=== PATIENT | female | born 1990 | race Caucasian/White ===

== ENCOUNTER 2017-04-29 10:41 | Emergency (ER) | payer SELFPAY ==
[2017-04-29 12:27] LABS: Basophils % (Auto) 0.5 % (0.0-1.8); Hematocrit 35.7 % (30.3-42.9); Hemoglobin 12.3 gm/dl (10.1-14.3); Mean Corpuscular HGB Conc 35 % (30-34); Mean Corpuscular Hemoglobin 30 pg (28-32); Mean Corpuscular Volume 87 fl (79-97); Platelet Count 470 K/mm3 (140-440); Red Cell Distribution Width 15.8 % (13.2-15.2); White Blood Count 10.8 K/mm3 (4.5-11.0)
[2017-04-29 12:40] LABS: Anion Gap 21 mmol/L; Blood Urea Nitrogen 6 mg/dL (7-17); Calcium 9.4 mg/dL (8.4-10.2); Carbon Dioxide 20 mmol/L (22-30); Chloride 94.1 mmol/L (98-107); Glucose 113 mg/dL (65-100); Potassium 3.7 mmol/L (3.6-5.0); Sodium 131 mmol/L (137-145)
[2017-04-29 15:37] LABS: Bilirubin,Urine NEG (Negative); Blood,Urine SM (Negative); Ketones,Urine 80 mg/dL (Negative); Leukocyte Esterase,Urine TR (Negative); Mucus,Urine 3+ /HPF; Nitrite,Urine NEG (Negative); Urobilinogen,Urine < 2.0 mg/dL (<2.0)
[2017-04-29] MEDS ORDERED: TYLENOL PO ONE (16:41)
[2017-04-29] MEDS ORDERED: TYLENOL ONE (16:43)
--- NOTE | 2017-04-29 16:44 | Emergency Department Report ---
ED HPI - General Chief complaint: Nausea/Vomiting/Diarrhea Stated complaint: 15 WEEKS PREG W/EMESIS Time Seen by Provider: 04/29/17 16:33 Source: patient, EMS (ems notes not available at time of chart dictation), RN notes reviewed Mode of arrival: Stretcher Limitations: No Limitations - History of Present Illness Initial comments: This is a 26-year-old female, the patient is previously unknown to me. She reports that she is 3, para 2, reports that her last menstrual period is February 10. She reports no care. Patient brought to the hospital by EMS for abdominal cramping, nausea, vomiting , malaise, constipation, unintentional weight loss. Patient denies fevers, chills, irritative and obstructive urinary symptoms, her symptoms were improved with IV Zofran and 300 mL of IV fluids given to the patient by EMS, as per nursing documentation. The patient's nausea and vomiting has since resolved, and she reports that she feels somewhat better, there is no right lower quadrant pain. -: Gradual Quality: cramping Consistency: now resolved Improves with: movement Worsens with: eating Associated symptoms: nausea/vomiting. denies: dysuria :: Yes - Related Data Previous Rx's Medication Instructions Recorded Last Taken Type Doxylamine/Pyridoxine HCl 1 each PO QHS PRN #30 tablet. 04/29/17 Unknown Rx [Kevin Black 10-10 mg Tablet] Tasia Root [Tasia] 250 mg PO QID PRN #60 capsule 04/29/17 Unknown Rx Ondansetron [Zofran Odt] 4 mg PO QID PRN #20 tab.rapdis 04/29/17 Unknown Rx Vit W-Ca,Fe,FA(<1 mg) 1 each PO QDAY #30 tablet 04/29/17 Unknown Rx [ Vitamins] Allergies Allergy/AdvReac Type Severity Reaction Status Date / Time No Known Allergies Allergy Verified 04/29/17 16:40 ED Review of Systems ROS: Stated complaint: 15 WEEKS PREG W/EMESIS Other details as noted in HPI Constitutional: malaise. denies: fever Eyes: denies: vision change ENT: denies: epistaxis Respiratory: denies: cough Gastrointestinal: abdominal pain, nausea, vomiting Genitourinary: denies: dysuria Musculoskeletal: denies: back pain Skin: denies: lesions Neurological: weakness. denies: headache Psychiatric: anxiety ED Past Medical Hx - Medications Home Medications: Home Medications Medication Instructions Recorded Confirmed Last Taken Type Doxylamine/Pyridoxine HCl 1 each PO QHS PRN #30 tablet.dr 04/29/17 Unknown Rx [Diclegis Dr 10-10 mg Tablet] Tasia Root [Tasia] 250 mg PO QID PRN #60 capsule 04/29/17 Unknown Rx Ondansetron [Zofran Odt] 4 mg PO QID PRN #20 tab.rapdis 04/29/17 Unknown Rx Vit W-Ca,Fe,FA(<1 mg) 1 each PO QDAY #30 tablet 04/29/17 Unknown Rx [ Vitamins] ED Physical Exam - General Limitations: No Limitations General appearance: alert, in no apparent distress - Head Head exam: Present: atraumatic, normocephalic - Eye Eye exam: Present: normal appearance, EOMI. Absent: nystagmus - ENT ENT exam: Present: normal exam, normal orophraynx, mucous membranes moist, normal external ear exam - Neck Neck exam: Present: normal inspection, full ROM. Absent: tenderness, meningismus - Respiratory Respiratory exam: Present: normal lung sounds bilaterally. Absent: respiratory distress, wheezes, rales, rhonchi, stridor, chest wall tenderness, accessory muscle use, decreased breath sounds, prolonged expiratory - Cardiovascular Cardiovascular Exam: Present: regular rate, normal rhythm. Absent: systolic murmur, diastolic murmur, rubs, gallop - GI/Abdominal GI/Abdominal exam: Present: soft, normal bowel sounds. Absent: distended, tenderness, guarding, rebound, rigid, pulsatile mass - Extremities Exam Extremities exam: Present: normal inspection, full ROM, normal capillary refill. Absent: tenderness, pedal edema, joint swelling, calf tenderness - Back Exam Back exam: Present: normal inspection, full ROM. Absent: tenderness, CVA tenderness (R), CVA tenderness (L), muscle spasm, paraspinal tenderness, vertebral tenderness - Neurological Exam Neurological exam: Present: alert, oriented X3, normal gait, other (Extraocular movements intact. Tongue midline. No facial droop. Facial sensation intact to light touch in the V1, V2, V3 distribution bilaterally. 5 and 5 strength in 4 extremities.. Sensation is intact to light touch in 4 extremities.). Absent : motor sensory deficit - Psychiatric Psychiatric exam: Present: normal affect, normal mood - Skin Skin exam: Present: warm, dry, intact, normal color. Absent: rash ED Course Vital Signs 04/29/17 04/29/17 04/29/17 11:41 16:46 16:50 Temperature 99.2 F 99.4 F Pulse Rate 82 92 H Respiratory 18 18 16 Rate Blood Pressure 121/82 Blood Pressure 117/82 [Left] O2 Sat by Pulse 98 Oximetry ED Medical Decision Making - Lab Data Result diagrams: 04/29/17 12:09 04/29/17 12:09 Vital Signs 04/29/17 04/29/17 04/29/17 11:41 16:46 16:50 Temperature 99.2 F 99.4 F Pulse Rate 82 92 H Respiratory 18 18 16 Rate Blood Pressure 121/82 Blood Pressure 117/82 [Left] O2 Sat by Pulse 98 Oximetry Lab Results 04/29/17 04/29/17 04/29/17 Range/Units 12:09 12:09 15:10 WBC 10.8 (4.5-11.0) K/mm3 RBC 4.10 (3.65-5.03) M/mm3 Hgb 12.3 (10.1-14.3) gm/dl Hct 35.7 (30.3-42.9) % MCV 87 (79-97) fl MCH 30 (28-32) pg MCHC 35 H (30-34) % RDW 15.8 H (13.2-15.2) % Plt Count 470 H (140-440) K/mm3 Lymph % (Auto) 12.1 L (13.4-35.0) % [place] % (Auto) 4.5 (0.0-7.3) % Eos % (Auto) 0.0 (0.0-4.3) % Baso % (Auto) 0.5 (0.0-1.8) % Lymph # 1.3 (1.2-5.4) K/mm3 [place] # 0.5 (0.0-0.8) K/mm3 Eos # 0.0 (0.0-0.4) K/mm3 Baso # 0.1 (0.0-0.1) K/mm3 Seg Neutrophils % 82.9 H (40.0-70.0) % Seg Neutrophils # 9.0 H (1.8-7.7) K/mm3 Sodium 131 L (137-145) mmol/L Potassium 3.7 (3.6-5.0) mmol/L Chloride 94.1 L (98-107) mmol/L Carbon Dioxide 20 L (22-30) mmol/L Anion Gap 21 mmol/L BUN 6 L (7-17) mg/dL Creatinine 0.3 L (0.7-1.2) mg/dL Estimated GFR > 60 ml/min BUN/Creatinine Ratio 20.00 % Glucose 113 H (65-100) mg/dL Calcium 9.4 (8.4-10.2) mg/dL Urine Color Yellow (Yellow) Urine Turbidity Slightly-cloudy (Clear) Urine pH 6.0 (5.0-7.0) Ur Specific [place] 1.026 (1.003-1.030) Urine Protein 100 mg/dl (Negative) mg/dL Urine Glucose (UA) 50 (Negative) mg/dL Urine Ketones 80 (Negative) mg/dL Urine Blood Sm (Negative) Urine Nitrite Neg (Negative) Ur Reducing Substances Not Reportable Urine Bilirubin Neg (Negative) Urine Ictotest Not Reportable Urine Urobilinogen < 2.0 (<2.0) mg/dL Ur Leukocyte Esterase Tr (Negative) Urine WBC (Auto) 9.0 H (0.0-6.0) /HPF Urine RBC (Auto) 14.0 (0.0-6.0) /HPF U Epithel Cells (Auto) 9.0 (0-13.0) /HPF Urine Mucus 3+ /HPF - Medical Decision Making Differential diagnosis: Hyperemesis, nausea and vomiting of , constipation Assessment and plan: 26-year-old female who is , bedside ultrasound demonstrates intrauterine with heart tones, no abdominal tenderness, no right lower quadrant tenderness, with resolved nausea and vomiting, most likely in the hyperemesis/nausea and vomiting of spectrum. She is tolerating liquid feeds, and has benign vital signs and benign physical exam, she'll be started on vitamins, she'll be given as needed nausea medication, and the patient is instructed as to importance of following up with outpatient supervisor paper products. Return precautions are reviewed. Critical care attestation.: If time is entered above; I have spent that time in minutes in the direct care of this critically ill patient, excluding procedure time. ED Disposition Clinical Impression: Nausea and vomiting during Disposition: DC-01 TO HOME OR SELFCARE Is pt being admited?: No Does the pt Need Aspirin: No Condition: Stable Instructions: Hyperemesis Gravidarum (ED) Additional Instructions: Take the medications as needed/directed. Avoid consumption of heavy and or spicy foods. Drink fluids as tolerated, follow up with an [facility] doctor as soon as possible to start and initiate care. Not following up with an [facility] as soon as possible may result in disability, paralysis, defects, loss of quality of life to both the fetus and the mother. Return to the ER right away with new pain, worsening pain, migration of pain, fevers, chills, confusion, intractable nausea or vomiting, inability to tolerate liquid feeds. Prescriptions: Doxylamine/Pyridoxine HCl [Kevin Black 10-10 mg Tablet] 1 each PO QHS PRN #30 tablet.dr PRN Reason: Nausea Tasia Root [Tsaia] 250 mg PO QID PRN #60 capsule PRN Reason: Nausea Ondansetron [Zofran Odt] 4 mg PO QID PRN #20 tab.rapdis PRN Reason: Nausea Vit W-Ca,Fe,FA(<1 mg) [ Vitamins] 1 each PO QDAY #30 tablet Referrals: PRIMARY CARE, [Primary Care Provider] - 3-5 Days [facility] [Provider Group] - 3-5 Days [facility] [Provider Group] - 3-5 Days [facility] [Provider Group] - 3-5 Days
[2017-04-29 16:52] VITALS: BP 117/82
== END 2017-04-29 17:37 | disposition home or self-care (01) ==
LOC: ED 10:41
DX: O21.0 Mild hyperemesis gravidarum (principal); Z3A.15 15 weeks gestation of pregnancy
CPT/HCPCS: 36415; 80048; 81001; 81025; 85025; 99284

== ENCOUNTER 2017-05-01 08:32 | Emergency (ER) | payer SELFPAY ==
[2017-05-01 09:14] LABS: Basophils % (Auto) 0.5 % (0.0-1.8); Eosinophils % (Auto) 0.1 % (0.0-4.3); Hematocrit 37.5 % (30.3-42.9); Hemoglobin 12.8 gm/dl (10.1-14.3); Mean Corpuscular HGB Conc 34 % (30-34); Mean Corpuscular Hemoglobin 30 pg (28-32); Mean Corpuscular Volume 89 fl (79-97); Platelet Count 395 K/mm3 (140-440); Red Blood Count 4.23 M/mm3 (3.65-5.03); Red Cell Distribution Width 15.5 % (13.2-15.2)
[2017-05-01 09:25] LABS: Anion Gap 22 mmol/L; Blood Urea Nitrogen 15 mg/dL (7-17); Calcium 9.4 mg/dL (8.4-10.2); Carbon Dioxide 19 mmol/L (22-30); Glucose 62 mg/dL (65-100); Potassium 3.4 mmol/L (3.6-5.0); Sodium 134 mmol/L (137-145)
[2017-05-01] MEDS ORDERED: NACL 0.9% 1000 ML 1,000 ML IV ONE (14:35)
[2017-05-01] MEDS ORDERED: ZOFRAN IV ONE (14:36)
[2017-05-01] MEDS ORDERED: K-DUR PO ONE (15:22)
--- NOTE | 2017-05-01 15:23 | Emergency Department Report ---
ED HPI - General Chief complaint: Abdominal Pain Stated complaint: N/V of preg; no vag bleed or dc Time Seen by Provider: 05/01/17 14:37 Source: patient, old records reviewed Mode of arrival: Ambulatory Limitations: No Limitations - History of Present Illness MD Complaint: other (nv per report; no active n/v in er) -: month(s) Severity: mild Consistency: intermittent Improves with: none Worsens with: eating Associated symptoms: denies other symptoms, nausea/vomiting. denies: vaginal bleeding, vaginal discharge, abdominal pain, dysuria, headache, vision changes, malaise, dysparuenia, rash, seizure, shortness of breath, syncope, weakness Vaginal bleeding: none :: Yes Number of weeks : 11 OB History - Current : hyperemesis (w other preg) OB History - Previous Pregnancies: hyperemesis Pre-carola care: none - Related Data : 3 Para: 2 Ab: 0 Previous Rx's Medication Instructions Recorded Last Taken Type Doxylamine/Pyridoxine HCl 1 each PO QHS PRN #30 tablet.dr 04/29/17 Unknown Rx [Dictreygiaydin Dr 10-10 mg Tablet] Tasia Root [Tasia] 250 mg PO QID PRN #60 capsule 04/29/17 Unknown Rx Ondansetron [Zofran Odt] 4 mg PO QID PRN #20 tab.rapdis 04/29/17 Unknown Rx Vit W-Ca,Fe,FA(<1 mg) 1 each PO QDAY #30 tablet 04/29/17 Unknown Rx [ Vitamins] Allergies Allergy/AdvReac Type Severity Reaction Status Date / Time No Known Allergies Allergy Verified 04/29/17 16:40 ED Review of Systems ROS: Stated complaint: N/V Other details as noted in HPI Comment: Unobtainable due to pts medical conditions Constitutional: no symptoms reported, see HPI. denies: chills, fever Eyes: as per HPI. denies: eye pain ENT: as per HPI. denies: ear pain, throat pain Respiratory: no symptoms reported, see HPI. denies: cough, orthopnea Cardiovascular: as per HPI. denies: chest pain, palpitations, dyspnea on exertion, orthopnea Endocrine: no symptoms reported, see HPI. denies: excessive sweating, flushing , intolerance to cold, intolerance to heat Gastrointestinal: as per HPI, nausea, vomiting. denies: abdominal pain, diarrhea, constipation, hematemesis, melena, hematochezia Genitourinary: as per HPI. denies: urgency, dysuria, frequency, hematuria, discharge, abnormal menses, dyspareunia Musculoskeletal: as per HPI. denies: back pain Skin: as per HPI. denies: rash, lesions Neurological: as per HPI. denies: headache, weakness Psychiatric: as per HPI. denies: anxiety, depression Hematological/Lymphatic: as per HPI. denies: easy bleeding (no abd pain; no vag bleed or dc; denies concern for std) ED Past Medical Hx - Past Medical History Previous Medical History?: No - Surgical History Past Surgical History?: No - Medications Home Medications: Home Medications Medication Instructions Recorded Confirmed Last Taken Type Doxylamine/Pyridoxine HCl 1 each PO QHS PRN #30 tablet.dr 04/29/17 Unknown Rx [Diclegis Dr 10-10 mg Tablet] Tasia Root [Tasia] 250 mg PO QID PRN #60 capsule 04/29/17 Unknown Rx Ondansetron [Zofran Odt] 4 mg PO QID PRN #20 tab.rapdis 04/29/17 Unknown Rx Vit W-Ca,Fe,FA(<1 mg) 1 each PO QDAY #30 tablet 04/29/17 Unknown Rx [ Vitamins] ED Physical Exam - General Limitations: No Limitations General appearance: alert, in no apparent distress - Head Head exam: Present: atraumatic - Eye Eye exam: Present: normal appearance - ENT ENT exam: Present: mucous membranes moist - Neck Neck exam: Present: normal inspection - Respiratory Respiratory exam: Present: normal lung sounds bilaterally - Cardiovascular Cardiovascular Exam: Present: regular rate, normal rhythm (88 on exam) - GI/Abdominal GI/Abdominal exam: Present: soft, normal bowel sounds, other (thin; thc use). Absent: distended, tenderness, guarding, rebound, rigid, diminished bowel sounds , hyperactive bowel sounds, hypoactive bowel sounds, organomegaly, mass, bruit, pulsatile mass, hernia - Expanded GI/Abdominal Exam Expanded GI/Abdominal exam: Absent: psoas sign, obturator sign, heel tap sign, Thurman's sign, Rovsing's sign, tenderness at [place], ascites - Rectal Rectal exam: Present: deferred - External exam: Present: normal external exam - Extremities Exam Extremities exam: Present: normal inspection. Absent: full ROM, tenderness - Back Exam Back exam: Present: normal inspection, full ROM. Absent: tenderness, CVA tenderness (R) - Neurological Exam Neurological exam: Present: alert, oriented X3, normal gait, reflexes normal - Psychiatric Psychiatric exam: Present: normal affect, normal mood - Skin Skin exam: Present: warm, dry, intact ED Course Vital Signs 05/01/17 05/01/17 05/01/17 08:37 16:33 18:53 Temperature 98.6 F Pulse Rate 108 H 75 77 Respiratory 16 16 16 Rate Blood Pressure 109/67 Blood Pressure 122/75 107/67 [Right] O2 Sat by Pulse 100 99 98 Oximetry - Reevaluation(s) Reevaluation #1: 05/01/17 was in er Tuesday w same states can not take po but no n/v here in er no abd pain no vag dc or bleeding vss labs noted and stable no concern std we did send gc and urine cultures we got a phone no to call pt if we should need to. no fever no dysuria wbc wnl no cva tenderness has not seen her obgyn using thc on exam fht 160 per provider bedside us urine is clean catch epith cells no cva no fever no dysuria Reevaluation #2: 05/01/17 18:59 dc home w dc poc observation and no n/v taking po vss hr 86 on dc ambulatory and taking po - Procedure Description Procedures done: bedside us for [facility] ED Medical Decision Making - Lab Data Result diagrams: 05/01/17 08:59 05/01/17 08:59 - Medical Decision Making hyperemesis grav 11 w preg no vag bleed or dc no abd pain taking po on dc had same w other preg Critical care attestation.: If time is entered above; I have spent that time in minutes in the direct care of this critically ill patient, excluding procedure time. ED Disposition Clinical Impression: Nausea and vomiting during , IUP (intrauterine ), incidental Disposition: DC-01 TO HOME OR SELFCARE Is pt being admited?: No Does the pt Need Aspirin: No Condition: Stable Instructions: Hyperemesis Gravidarum (ED) Additional Instructions: rest fluids water no alcohol no marijuanna take you meds that we gave you Tuesday See OB in AM Referrals: PRIMARY CARE, [Primary Care Provider] - 3-5 Days [facility] [Outside] - 3-5 Days [facility] [Outside] - 3-5 Days BERHANE DELVALLE MD [Referring] - 3-5 Days Time of Disposition: 18:52
[2017-05-01 15:36] LABS: Bacteria,Urine 1+ /HPF (Negative); Bilirubin,Urine NEG (Negative); Blood,Urine SM (Negative); Ketones,Urine 80 mg/dL (Negative); Leukocyte Esterase,Urine TR (Negative); Mucus,Urine 3+ /HPF; Nitrite,Urine NEG (Negative); Urobilinogen,Urine < 2.0 mg/dL (<2.0)
[2017-05-01 18:54] VITALS: BP 107/67
== END 2017-05-01 19:08 | disposition home or self-care (01) ==
LOC: ED 08:32
DX: O21.9 Vomiting of pregnancy, unspecified (principal); R11.0 Nausea; Z3A.11 11 weeks gestation of pregnancy
CPT/HCPCS: 36415; 80048; 81001; 83735; 84702; 85025; 87086; 96361; 96374; 99284; J2405; J7030